=== PATIENT | female | born 1980 | race Caucasian/White ===

== ENCOUNTER 2018-03-27 12:33 | Emergency (ER) | payer MEDICARE, MEDICAID ==
[~2018-03-27] VITALS: Ht 162.6 cm; Wt 63.6 kg
[2018-03-27 12:50] VITALS: Ht 162.6 cm; Wt 63.6 kg
[2018-03-27] MEDS ORDERED: TAMIFLU75 MG PO (15:14)
[2018-03-27 15:45] VITALS: BP 133/80
== END 2018-03-27 15:46 | disposition home or self-care (01) ==
LOC: D.ER 12:33
DX: J09.X2 Influenza due to identified novel influenza A virus with other respiratory manifestations (principal); R09.89 Other specified symptoms and signs involving the circulatory and respiratory systems